=== PATIENT | male | born 1995 | race Two or more races ===

== ENCOUNTER 2024-12-21 18:58 | Inpatient (IN) | payer MEDICAID, SELFPAY ==
[2024-12-21 18:59] VITALS: BMI 29.5
[2024-12-21 19:26] VITALS: BP 156/99; PULSE 74; RESP 18; TEMP 37.1; O2SAT 100
--- NOTE | 2024-12-21 19:51 | PD.EDRME ---
Rapid Medical Screening Exam RME Arrival date/time: 12/21/24 18:58 Chief Complaint: Nausea/Vomiting/Diarrhea Vital signs: Vital Signs Temperature 98.8 F 12/21/24 19:26 Pulse Rate 74 12/21/24 19:26 Respiratory Rate 18 12/21/24 19:26 Blood Pressure 156/99 H 12/21/24 19:26 Pulse Oximetry (%) 100 12/21/24 19:26 Oxygen Delivery Method Room Air 12/21/24 19:26 Pulse ox room air is 100% Vital signs reviewed by provider: Yes RME Narrative: Patient complains of vomiting all day x 2 days. Complains of fever and chills.
[2024-12-21] MEDS: ONDANSETRON ODT 4 MG TABRAP PO (19:57)
[2024-12-21 20:07] LABS: Collection Type, Urine Clean Catch
[2024-12-21 20:09] LABS: Basophils # (Auto) 0.1 Thou/mm3 (0.0-0.2); Basophils % (Auto) 0 % (0-2.5); Eosinophils % (Auto) 0 % (0-10); Hematocrit 47.7 % (41.0-53.0); Hemoglobin 16.9 g/dL (13.5-16.0); Immature Granulocytes % (Auto) 0 % (0-0); Immature Granulocytes Auto 0.06 Thou/mm3 (0.00-0.00); Lymphocytes # (Auto) 2.2 Thou/mm3 (1.0-4.8); Lymphocytes % (Auto) 16 % (10-50); Mean Corpuscular HGB Conc 35.4 g/dl (31.0-37.0); Mean Corpuscular Hemoglobin 28.8 pg (25.0-35.0); Mean Corpuscular Volume 81 fL (80-100); Monocytes # (Auto) 1.1 Thou/mm3 (0.0-0.8); Monocytes % (Auto) 7 % (0-12); Neutrophils # (Auto) 10.8 Thou/mm3 (1.8-7.7); Neutrophils % (Auto) 76 % (37-80); Nucleated Red Blood Cell % 0 /100 WBC (0); Platelet Count 255 Thou/mm3 (140-440); RDW Standard Deviation 38.7 fL (35.1-43.9); Red Blood Count 5.87 Miln/mm3 (4.50-5.90); White Blood Count 14.3 Thou/mm3 (3.8-10.6)
[2024-12-21 20:19] LABS: Amorphous Crystals,Urine Present (Absent); Bacteria,Urine Rare; Bilirubin,Urine Negative (Negative); Blood,Urine Trace (Negative); Clarity,Urine Turbid (Clear/Hazy); Color,Urine Lt-Yellow (Lt Yel-Yel); Glucose, Urine Negative (Negative); Ketones,Urine Negative (Negative); Leukocyte Esterase,Urine Negative (Negative); Nitrite,Urine Negative (Negative); Protein,Urine Negative (Neg - Trace); RBC,Urine 1 /hpf (0-3); Specific Gravity,Urine 1.016 (1.001-1.035); Squamous Epithelial Cell,Urine 1 /hpf (0-5); Urobilinogen,Urine Negative mg/dL (0.0-1.0); WBC,Urine < 1 /hpf (0-5)
[2024-12-21 20:25] LABS: Alanine Aminotransferase 19 U/L (10-49); Albumin, Serum 5.4 gm/dL (3.5-5.0); Albumin/Globulin Ratio 2.3 (1.2-2.2); Alkaline Phosphatase 70 U/L (46-116); Anion Gap 12 (7-16); Aspartate Amino Transferase 20 U/L (0-34); BUN/Creatinine Ratio 12 Ratio (12-20); Bilirubin,Total 1.4 mg/dL (0.3-1.2); Blood Urea Nitrogen 14 mg/dL (9-23); Calcium 10.3 mg/dL (8.3-10.6); Calcium (Corrected) 10.3 mg/dL (8.5-10.1); Carbon Dioxide 32.1 mMol/L (20.0-31.0); Chloride 91 mMol/L (98-107); Creatinine (Component) 1.2 mg/dL (0.6-1.3); Estimated Creatinine Clearance 101.1 mL/min (>60); Globulin 2.3 gm/dL (2.3-3.5); Glucose 125 mg/dL (74-106); Lipase 46 U/L (12-53); Osmolality,Calculated 271 (275-295); Potassium 3.1 mMol/L (3.4-5.1); Sodium 135 mMol/L (136-145); Total Protein 7.7 gm/dL (5.7-8.2); eGFR > 60 See Note
--- NOTE | 2024-12-21 20:51 | XR_ITS ---
Examination: CT abdomen and pelvis without contrast. Coronal 3-D reconstructions. Sagittal 2-D reconstructions. Date and time of exam:December 21, 2024 2059 hours INDICATIONS: Acute abdominal pain with vomiting 3 days CTDI: vol (mGy): 7.122 DLP: (mGycm): 412 Technique: Axial images of the abdomen have been obtained, 3 mm slice thickness Intravenous contrast material has not been administered. Low dose protocols were performed. One or more of the following dose reduction techniques were used; automated exposure control, adjustment of the mA and/or KV according to patient size, use of iterative reconstruction technique. Findings: No focal liver or splenic lesions No gallstones No pancreatic or adrenal mass No renal or ureteral calculi, no hydronephrosis Normal appendix Mildly fluid distended small bowel loops in the left abdomen No bowel obstruction Scattered colonic diverticulosis, normal appendix No bladder mass Fat-containing left inguinal hernia. IMPRESSION: No renal or ureteral calculi, no hydronephrosis Normal appendix No bowel obstruction diverticulitis or free air Mild small bowel ileus
--- NOTE | 2024-12-21 20:52 | EDNOTE_ITS ---
Nausea/Vomit./Diarrhea-RME/HPI General Chief complaint: Nausea/Vomiting/Diarrhea Stated complaint: UNABLE TO EAT LAST 2 DAYS, CONSTANT VOMITING Time Seen by Provider: 12/21/24 20:51 Source: patient Arrival date/time: 12/21/24 18:58 Mode of arrival: ambulatory Limitations: no limitations RME / HPI RME / HPI Narrative: Patient complains of vomiting all day x 2 days. Complains of fever and chills. MD complaint: nausea and vomiting Onset (ago): day(s) (2 days) Related Data Previous Rx's ?Medication ?Instructions ?Recorded metoclopramide HCl 10 mg tablet 10 mg PO Q6H PRN nause a and 04/16/24 (Reglan) vomiting #30 tabs Allergies Allergy/AdvReac Type Severity Reaction Status Date / Time No Known Allergies Allergy Verified 12/21/24 19:01 Review of Systems Constitutional Constitutional: Reports system reviewed and no additional complaints, except as documented Eyes Eyes: Reports system reviewed and no additional complaints, except as documented, Denies dry eyes, Denies exophthalmos and Reports floaters Cardiovascular Cardiovascular: Denies chest pain with activity and Denies claudication ED Exam General Limitations: Present no limitations General appearance: Present alert and in no apparent distress Head Head exam: Present atraumatic Eye Eye exam: Present normal appearance and EOMI ENT ENT exam: Present normal exam, normal oropharynx and mucous membranes moist Neck Neck exam: Present normal inspection, full ROM and trachea midline Chest Chest inspection: Present normal inspection and symmetric chest wall rise Respiratory Respiratory exam: Present normal lung sounds bilaterally Cardiovascular Cardiovascular exam: Present regular rate, normal rhythm and normal heart sounds Abdominal Exam Abdominal exam: Present soft and tenderness (Tender to palpation in the area of the right upper in the left upper quadrant.) Rectal Exam Rectal exam: Present deferred Extremities Exam Extremities exam: Present normal inspection and full ROM Back Exam Back exam: Present normal inspection and full ROM Neurological Exam Neurological exam: Present alert and oriented X3 Psychiatric Psychiatric exam: Present normal affect and normal mood Skin Skin exam: Present warm, dry, intact and normal color Course Course Course Narrative: Patient will have a CBC, CMP, UA and ondansetron 4 mg p.o. times once. A CT of the abdomen and pelvis had been added. Orders Category Date Time Status CT abdomen pelvis wo con Stat Exams 12/21/24 20:51 Ordered CBC Stat Lab 12/21/24 20:01 Completed Comprehensive Metabolic Panel Stat Lab 12/21/24 20:01 Completed Lipase Stat Lab 12/21/24 20:01 Completed Urinalysis Stat Lab 12/21/24 20:00 Completed Ondansetron Odt [Zofran Odt] Med 12/21/24 19:52 Discontinued 4 mg PO X1 ONE Vital Signs Vital signs: Vital Signs Temperature 98.8 F 12/21/24 19:26 Pulse Rate 74 12/21/24 19:26 Respiratory Rate 18 12/21/24 19:26 Blood Pressure 156/99 H 12/21/24 19:26 Pulse Oximetry (%) 100 12/21/24 19:26 Oxygen Delivery Method Room Air 12/21/24 19:26 Pulse ox room air is 100% Nausea/Vomiting/Diarrhea Medications / Prescriptions Medication administrations:: Medication Administration History Discontinued Medications Ondansetron HCl (Ondansetron Odt 4 Mg Tabrap) 4 mg PO X1 ONE; Protocol Stop: 12/21/24 19:53 Last Admin: 12/21/24 19:57 Dose: 4 mg Documented By: OSITO Discharge Plan Prescriptions/Referrals Prescriptions/Med Rec: No Action metoclopramide HCl [Reglan] 10 mg tablet 10 mg PO Q6H PRN (Reason: nausea and vomiting) Qty: 30 0RF Referrals: Shahbaz Phan MD [Primary Care Provider] - In 1 week Patient/Caregiver Discharge Instructions Print Language: Slovenian
--- NOTE | 2024-12-21 23:30 | PC.NURSE ---
[employer] assumes care of patient at this time, pt is states no pain at this time, but has pain with vomiting to epigastric region. Pt is A/O x 3 with no breathing distress noted or reported
[2024-12-22] VITALS (10 sets, daily range): BP systolic 102–154; BP diastolic 66–93; PULSE 60–80; RESP 16–96; TEMP 36.1–36.9; O2SAT 93–99; BMI 26.2
--- NOTE | 2024-12-22 00:57 | EDNOTE_ITS ---
Nausea/Vomit./Diarrhea-RME/HPI General Chief complaint: Nausea/Vomiting/Diarrhea Stated complaint: UNABLE TO EAT LAST 2 DAYS, CONSTANT VOMITING Time Seen by Provider: 12/21/24 20:51 Source: patient Arrival date/time: 12/21/24 18:58 Mode of arrival: ambulatory Limitations: no limitations RME / HPI RME / HPI Narrative: Patient complains of vomiting all day x 2 days. Complains of fever and chills. ------ Dr. Nunez?s Main ED Evaluation: 29yo male with a history of alcohol abuse (quit drinking 5 days ago) presents to the ED for complaints of nausea and vomiting x 3 days. Patient states he has had 2 episodes of black tarry emesis and noticed black stools yesterday. Patient states he is passing gas. Patient denies any fever, chills, diarrhea, UTI symptoms or any other associated symptoms. Denies any previous abdominal surgeries. He is not on any daily medications. Patient does smoke marijuana. NKA. LOZA complaint: nausea and vomiting Related Data Previous Rx's ?Medication ?Instructions ?Recorded metoclopramide HCl 10 mg tablet 10 mg PO Q6H PRN nause a and 04/16/24 (Reglan) vomiting #30 tabs Allergies Allergy/AdvReac Type Severity Reaction Status Date / Time No Known Allergies Allergy Verified 12/21/24 19:01 Review of Systems Review of Systems Systems Reviewed: All systems reviewed, normal except as documented Past Medical History Past Medical History CARDIAC: Negative Congestive Heart Failure RESPIRATORY: Negative Chronic Obstructive Pulmonary Disease (COPD) GENITOURINARY: Negative Renal Disease ENDOCRINE: Negative Diabetes Mellitus Type 1 or Diabetes Mellitus Type 2 Social History SMOKING STATUS: Never smoker ED Exam Narrative Physical exam: GEN. APPEARANCE: The patient is alert awake oriented X-3, appears uncomfortable. Patient has good eye contact. Patient is cooperative. VITALS: All vitals were reviewed and the pulse ox is 100% on room air which is normal according to my interpretation. HEENT: Normocephalic, atraumatic. Pupils are equal and reactive. Oral mucosa is moist. Patent Nares NECK: Supple, nontender, no thyromegaly, no meningismus, no JVD CHEST: Symmetrical, atraumatic, and with equal expansion , Nontender on palpatio n no deformity and no crepitus. CARDIOVASCULAR: Heart regular rhythm no murmur or gallop rub or extra beats. LUNGS: Clear to auscultation bilaterally with symmetrical chest rise. No laboring tachypnea or wheezing. No intercostal subcostal retraction. No rales and no rhonchi. ABDOMEN: Soft, flat, nontender to palpation, no guarding or rebound tenderness. There are no abnormal masses palpated. Active and normal bowel sounds. EXTREMITIES: Nontender. No edema. No cyanosis. Patient is able to move all 4 extremities well, with full ROM and good CSM. SKIN: Warm and dry, no jaundice or rashes noted. NEURO: Patient is LOPEZ x 4, Cranial nerves II through XII grossly intact. There is no focal neurologic deficits noted. GCS is 15, PNS and STIPPLER appear grossly intact. PSYCHIATRIC: Patient is in normal mood and affect. General Limitations: Present no limitations General appearance: Present alert and in no apparent distress Course Quality Measures none Orders Category Date Time Status CT abdomen pelvis wo con Stat Exams 12/21/24 20:51 Completed CBC Stat Lab 12/21/24 20:01 Completed Comprehensive Metabolic Panel Stat Lab 12/21/24 20:01 Completed Lipase Stat Lab 12/21/24 20:01 Completed Urinalysis Stat Lab 12/21/24 20:00 Completed Metoclopramide Inj [Reglan Inj] Med 12/22/24 00:58 Discontinued 5 mg IVP NOW ONE Octreotide Acet Inj [SandoSTATIN Inj] Med 12/22/24 00:57 Discontinued 50 mcg IV X1 ONE Ondansetron Odt [Zofran Odt] Med 12/21/24 19:52 Discontinued 4 mg PO X1 ONE Pantoprazole Inj [Protonix Inj] Med 12/22/24 00:57 Discontinued 80 mg IVP X1 ONE Potassium Chloride [K-Dur] Med 12/22/24 00:51 Discontinued 40 meq PO X1 ONE Ringers Lactated 1000 ml [Lactated Ringers] 1,000 ml Med 12/22/24 00:50 Active IV 999 mls/hr Vital Signs Vital signs: Vital Signs Temperature 98.8 F 12/21/24 19:26 Pulse Rate 74 12/21/24 19:26 Respiratory Rate 18 12/21/24 19:26 Blood Pressure 156/99 H 12/21/24 19:26 Pulse Oximetry (%) 100 12/21/24 19:26 Oxygen Delivery Method Room Air 12/21/24 19:26 Nausea/Vomiting/Diarrhea MDM Narrative MDM Narrative:: Scribe Attestation: 12/22/24 Marinaa Gardiner am scribing for and in the presence of Dr. Nunez. Patient data External records reviewed:: [facility] previous records (Per chart review, patient was seen here on 04/16/24 for alcoholic gastritis.) Clinical information provided by:: patient Social determinants that could affect healthcare access:: substance use (smokes marijuana, quit drinking alcohol 5 days ago) Patient has the following chronic illnesses:: none How is presenting disease/condition affected by chronic disease/condition?: no chronic disease Evaluation data The following diagnostics were reviewed and interpreted by me:: lab results and radiology exam(s) Lab and/or radiology exams considered but not ordered:: none Interpretation Summary: WBC 14.3, Sodium 135, Potassium 3.1, Corrected Calcium 10.3, UA unremarkable for UTI. ------ [facility] Report Signed Patient: ARLETTE RICHEY. Record#: [id number] Birthdate: 1995 Age/Sex: 29 / M Location: [facility] Attending Dr: Ordering Physician: Quirino Gee PA-C Date of Service: 12/21/24 Procedure(s): CT abdomen pelvis wo [facility] Accession Number(s): [id number] cc: Shahbaz Phan MD; Schuyler George MD; Quirino Gee PA-C~ Examination: CT abdomen and pelvis without contrast. Coronal 3-D reconstructions. Sagittal 2-D reconstructions. Date and time of exam:December 21, 2024 2059 hours INDICATIONS: Acute abdominal pain with vomiting 3 days CTDI: vol (mGy): 7.122 DLP: (mGycm): 412 Technique: Axial images of the abdomen have been obtained, 3 mm slice thickness Intravenous contrast material has not been administered. Low dose protocols were performed. One or more of the following dose reduction techniques were used; automated exposure control, adjustment of the mA and/or KV according to patient size, use of iterative reconstruction technique. Findings: No focal liver or splenic lesions No gallstones No pancreatic or adrenal mass No renal or ureteral calculi, no hydronephrosis Normal appendix Mildly fluid distended small bowel loops in the left abdomen No bowel obstruction Scattered colonic diverticulosis, normal appendix No bladder mass Fat-containing left inguinal hernia. IMPRESSION: No renal or ureteral calculi, no hydronephrosis Normal appendix No bowel obstruction diverticulitis or free air Mild small bowel ileus Dictated By: Schuyler George MD Signed By: <Electronically signed by Schuyler George MD in OV> 12/21/24 2287 Medications / Prescriptions Medications / Prescriptions considered but not ordered:: none Medication administrations:: Medication Administration History Lactated Ringer's (Lactated Ringers) 1,000 mls @ 999 mls/hr IV .Q1H1M ONE Stop: 12/22/24 01:50 Discontinued Medications Metoclopramide HCl (Metoclopramide Inj 5 Mg/Ml Vial 2 Ml) 5 mg IVP NOW ONE; Protocol Stop: 12/22/24 00:59 Octreotide Acetate (Octreotide Acet Inj 50 Mcg/Ml Vial) 50 mcg IV X1 ONE Stop: 12/22/24 00:58 Ondansetron HCl (Ondansetron Odt 4 Mg Tabrap) 4 mg PO X1 ONE; Protocol Stop: 12/21/24 19:53 Last Admin: 12/21/24 19:57 Dose: 4 mg Documented By: Pantoprazole Sodium (Pantoprazole Inj 40 Mg Vial) 80 mg IVP X1 ONE Stop: 12/22/24 00:58 Potassium Chloride (Potassium Chloride 20 Meq Tabcr) 40 meq PO X1 ONE Stop: 12/22/24 00:52 see above Consultations Consultation(s) initiated? (list below): Yes Consultation #1 (Physician, Specialty, Details): Discussed case with Dr. Carlin the resident physician, attending Dr. Sandoval from Hospitalist service regarding admission. Discussed patients ED course, exam findings, labs, and radiology results. The Hospitalist agrees to accept the patient for admission. Time: 01:00 Diagnosis Nausea Differential Diagnosis: other (perforated viscus, gastritis, esophageal ulcer, esophageal varices) Most likely diagnosis given after review of the tests above:: upper GI bleed Admission Indicated Admission indicated?: indicated Admission Request Was there a request for admission?: Yes Admission Attestation Admission request attestation: Discussed case with [] from Hospitalist service regarding admission. Discussed patients ED course, exam findings, labs, and radiology results. The Hospitalist [agrees,declines] to accept the patient for admission. Disposition Plan Disposition Plan: Admit Discharge Plan Plan Patient Disposition: Admit Acute Care w/in Hospital Prescriptions/Referrals Prescriptions/Med Rec: No Action metoclopramide HCl [Reglan] 10 mg tablet 10 mg PO Q6H PRN (Reason: nausea and vomiting) Qty: 30 0RF Referrals: Shahbaz Phan MD [Primary Care Provider] - In 1 week Problem List Clinical Impression: Upper gastrointestinal bleed Patient/Caregiver Discharge Instructions Print Language: Uzbek Stand Alone Forms: Mireille Award Info., Patient Portal Info Letter
--- NOTE | 2024-12-22 01:37 | PD.RESHP ---
Documentation for date of: 12/22/24 HPI History of Present Illness Chief complaint: Hematemesis History of present illness: 29-year-old male with past medical history of alcohol use disorder who presented to the ED with hematemesis and dark tarry stools. Patient is a daily drinker however states he has attempted to quit last drink was 5 days ago. Patient states that onset of symptoms was around 3-5 days ago where he first noticed dark stools which later became bloody. He also states he has been having bloody vomiting for 3 days ago last episode of bloody vomiting was yesterday night. This morning he also attempted to vomit however only saliva came out. He endorses some abdominal pain rated around 5 out of 10 more pronounced in the epigastric region however does endorse some right upper quadrant pain. He also endorses having dizziness at this present moment in time. Patient denies any fever, chills, shortness of breath, chest pain, recent travel, sick contacts. Patient will be admitted for GI bleed workup. ED course: ED vitals: BP 156/99, HR 74, saturating 100% on room air ED labs: Leukocytosis, hemoglobin of 16.9, sodium 135, potassium 3.1, chloride 91, 32.1 bicarbonate, glucose 125, T. bili 1.4, UA negative for UTI. CT abdomen pelvis shows mild SBO. Gallbladder ultrasound shows negative cholecystitis or cholelithiasis. In the ED patient received Protonix and octreotide loading doses, IV fluids, Zofran PMHx: As above SX Hx: None Social Hx: Daily alcohol user mostly drinks beers last drink was 5 days ago, denies illicit substances however does use marijuana, denies smoking. FH X: Unknown Review of Systems Review of Systems Systems Reviewed: All systems reviewed, normal except as documented Narrative Review of Systems: All 12 systems reviewed and found negative unless otherwise stated in the HPI. Exam Vital Signs Temp Pulse Resp BP Pulse Ox O2 Del Method 98.4 F 63 18 143/93 H 99 Room Air 12/22/24 00:57 12/22/24 00:57 12/22/24 00:57 12/22/24 00:57 12/22/24 00:57 12/22/24 00:57 Narrative Exam Physical Exam GENERAL: NAD, AAOx3 HEENT: Dry mucosa. Eyes open, symmetrical, & clear CARDIO: Heart RRR, no obvious murmurs PULM: No noted coughing/dyspnea CTA B/L, no R/W/R GI: Abdomen soft, nondistended, pain on palpation in epigastric region and right upper quadrant, negative Marion sign. BSx4 SKIN/MSK/EXT: No wounds/rashes/edema/amputations, no pain on palpation. Pedal pulses present B/L NEURO: AAOx3, no focal neuro deficits, able to move all 4 extremities Results: Labs 12/21/24 20:01 12/21/24 20:01 Labs: Short CBC 12/21/24 Range/Units 20:01 WBC 14.3 H (3.8-10.6) Thou/mm3 Hgb 16.9 H (13.5-16.0) g/dL Hct 47.7 (41.0-53.0) % Plt Count 255 (140-440) Thou/mm3 BMP 12/21/24 20:01 Sodium 135 L Potassium 3.1 L Chloride 91 L Carbon Dioxide 32.1 H BUN 14 Creatinine 1.2 Glucose 125 H Calcium 10.3 Liver Function 12/21/24 Range/Units 20:01 Total Bilirubin 1.4 H (0.3-1.2) mg/dL AST 20 (0-34) U/L ALT 19 (10-49) U/L Alkaline Phosphatase 70 (46-116) U/L Albumin 5.4 H (3.5-5.0) gm/dL Urine 12/21/24 Range/Units 20:00 Urine Color Lt-Yellow (Lt Yel-Yel) Urine Clarity Turbid A (Clear/Hazy) Urine pH 8.0 H (5.0-7.0) Ur Specific [place] 1.016 (1.001-1.035) Urine Protein Negative (Neg - Trace) Urine Glucose (UA) Negative (Negative) Quality Measures Quality Measures none Medications Home Medications and Allergies Allergies Allergy/AdvReac Type Severity Reaction Status Date / Time No Known Allergies Allergy Verified 12/21/24 19:01 Visit Medications Lactated Ringer's (Lactated Ringers) 1,000 mls @ 999 mls/hr IV .Q1H1M ONE Stop: 12/22/24 01:50 Discontinued Medications Metoclopramide HCl (Metoclopramide Inj 5 Mg/Ml Vial 2 Ml) 5 mg IVP NOW ONE; Protocol Stop: 12/22/24 00:59 Octreotide Acetate (Octreotide Acet Inj 50 Mcg/Ml Vial) 50 mcg IV X1 ONE Stop: 12/22/24 00:58 Ondansetron HCl (Ondansetron Odt 4 Mg Tabrap) 4 mg PO X1 ONE; Protocol Stop: 12/21/24 19:53 Last Admin: 12/21/24 19:57 Dose: 4 mg Pantoprazole Sodium (Pantoprazole Inj 40 Mg Vial) 80 mg IVP X1 ONE Stop: 12/22/24 00:58 Potassium Chloride (Potassium Chloride 20 Meq Tabcr) 40 meq PO X1 ONE Stop: 12/22/24 00:52 Assessment & Plan Plan 29-year-old male with past medical history of alcohol use disorder who presented to the ED with hematemesis and dark tarry stools. #GI bleed upper versus lower Onset of symptoms was around 3-5 days ago where he first noticed dark stools which later became bloody. He also states he has been having bloody vomiting for 3 days ago last episode of bloody vomiting was yesterday night. Hemoglobin at this time 16.9, no episodes of hematemesis or melena in the ED Rockall score: 0; 0.2% mortality pre-endoscopy Angelita-Blatchford Bleeding Score (GBS): 1; likely to require medical intervention ? Octreotide drip (12/22/2024?) ? Pantoprazole 40 mg IV twice daily ? IV fluids at 100 cc/h ? N.p.o. ? GI consulted, appreciate recs #Alcohol use disorder ? Thiamine ? Folic acid ? [facility] protocol #Elevated T. bili Likely due to dehydration in the setting of vomiting and alcohol use Gallbladder ultrasound was done showed no cholelithiasis or cholecystitis ? Monitor at this time Health Maintenance: Disposition: Telemetry, pending GI workup, [facility] protocol Fluids: NS Feeding: N.p.o. Thrombo prophylaxis: SCDs Gastric Ulcer prophylaxis: Pantoprazole CODE STATUS: Full code Case discussed with my attending Dr. Jaime Phan MD PGY-1 Disclaimer: Despite multiple revisions, due to the dictation software being used, the document bellow may not be free of grammatical errors including phonetic/typographic errors. However, this does not deter from our commitment to providing health care in the patient's best interest in mind. Attending Provider Attestation/Addendum I reviewed labs, imaging, EKG, home medications and prior available records. Face to face evaluation was performed by me. I have personally examined the patient and discussed assessment and plan with the IM team. I reviewed the resident note and agree with the plan with exceptions as below. Hematemesis Upper GI bleed Alcohol abuse Leukocytosis Hypokalemia Start IV octreotide Start IV Protonix Monitor H&H IV fluids Trend WBC Replete potassium as needed and monitor BMP Consult GI for EGD N.p.o. prior to EGD
[2024-12-22] MEDS: POTASSIUM CHLORIDE 20 mEq TABCR 40 MEQ PO (03:08)
[2024-12-22] MEDS: FOLIC ACID 1 MG TABLET PO ×3 (03:09→21:11)
[2024-12-22] MEDS: THIAMINE 100 MG TABLET PO ×3 (03:09→21:11)
[2024-12-22] MEDS: METOCLOPRAMIDE INJ 5 MG/ML VIAL 2 ML IVP (03:10)
[2024-12-22] MEDS: OCTREOTIDE ACET INJ 50 mCg/ML VIAL IV (03:11)
[2024-12-22] MEDS: PANTOPRAZOLE INJ 40 MG VIAL 80 MG IVP (03:12)
[2024-12-22] MEDS: RINGERS LACTATED 1000 ML 1,000 ML 999 ML IV (03:13)
--- NOTE | 2024-12-22 03:38 | PC.NURSE ---
Report called to floor nurse, CHINMAY Childress
[2024-12-22] MEDS: RINGERS LACTATED 1000 ML 1,000 ML 100 ML IV (04:30)
[2024-12-22] MEDS: OCTREOTIDE ACET INJ 1,000 MCG in SODIUM CHLORIDE 0.9% 100 ML 5.1 MCG IV ×2 (04:39→22:18)
[2024-12-22 05:31] LABS: Basophils % (Auto) 0 % (0-2.5); Eosinophils % (Auto) 0 % (0-10); Hematocrit 44.8 % (41.0-53.0); Hemoglobin 15.9 g/dL (13.5-16.0); Immature Granulocytes % (Auto) 0 % (0-0); Immature Granulocytes Auto 0.06 Thou/mm3 (0.00-0.00); Lymphocytes # (Auto) 2.1 Thou/mm3 (1.0-4.8); Lymphocytes % (Auto) 16 % (10-50); Mean Corpuscular HGB Conc 35.5 g/dl (31.0-37.0); Mean Corpuscular Volume 82 fL (80-100); Monocytes % (Auto) 8 % (0-12); Neutrophils # (Auto) 10.2 Thou/mm3 (1.8-7.7); Neutrophils % (Auto) 76 % (37-80); Nucleated Red Blood Cell % 0 /100 WBC (0); Platelet Count 256 Thou/mm3 (140-440); RDW Standard Deviation 38.8 fL (35.1-43.9); Red Blood Count 5.48 Miln/mm3 (4.50-5.90); White Blood Count 13.4 Thou/mm3 (3.8-10.6)
[2024-12-22 06:12] LABS: Alanine Aminotransferase 17 U/L (10-49); Albumin, Serum 4.7 gm/dL (3.5-5.0); Albumin/Globulin Ratio 2.1 (1.2-2.2); Alkaline Phosphatase 65 U/L (46-116); Anion Gap 16 (7-16); Aspartate Amino Transferase 23 U/L (0-34); BUN/Creatinine Ratio 12 Ratio (12-20); Bilirubin,Total 1.8 mg/dL (0.3-1.2); Blood Urea Nitrogen 12 mg/dL (9-23); Calcium 8.9 mg/dL (8.3-10.6); Calcium (Corrected) 8.9 mg/dL (8.5-10.1); Carbon Dioxide 28.4 mMol/L (20.0-31.0); Chloride 94 mMol/L (98-107); Globulin 2.2 gm/dL (2.3-3.5); Glucose 143 mg/dL (74-106); Magnesium 2.2 mg/dL (1.6-2.6); Osmolality,Calculated 277 (275-295); Potassium 3.8 mMol/L (3.4-5.1); Sodium 138 mMol/L (136-145); Total Protein 6.9 gm/dL (5.7-8.2); eGFR > 60 See Note
[2024-12-22] MEDS: ONDANSETRON INJ 2 MG/ML INJ 2 ML 4 MG IVP (08:00)
[2024-12-22] MEDS: LORazepam 0.5 MG TABLET PO (08:00)
[2024-12-22] MEDS: PANTOPRAZOLE INJ 40 MG VIAL IVP ×2 (08:01→21:11)
--- NOTE | 2024-12-22 10:03 | PC.SS ---
Dex Leal is a 29-year-old male admitted to [facility] for Hematemesis. SS conducted bedside contact with the patient to complete initial assessment and to discuss discharge planning. Role and reason explained. Patient confirmed demographic information. Patient identifies his Velvet Leal [phone] as his surrogate decision maker. Pt states he is able to complete all ADL?s independent. Pt does not possesses any DME. Pts PCP is Sylvester. Pharmacy of choice is [facility]. Discharge options discussed and the pt wishes to return home. Pt family will provide transport at the time of DC. No further intervention required at this time, social welfare research worker would be available to address any further concerns. DC Plan: Home Contact: Loretta PCP: Sylvester HUTCHINSON
--- NOTE | 2024-12-22 11:37 | ESPR_ITS ---
<Statement entered by Aubrey Carrero MD - 12/23/24 00:31> 29-year-old male patient with significant medical history for alcohol use disorder, was admitted overnight for hematemesis and dark tarry stools. Morning labs stable with hemoglobin of 15. Patient on CIWA protocol, GI Dr. Lay consulted for possible EGD and/or colonoscopy. We will continue octreotide and pantoprazole. I discussed with and supervised the marketing research intern physician involved in the care of this patient. Patient assessment and plan was discussed with entire medicine team, including my attending. I agree with the assessment and plan as documented by marketing research intern doctor. Patient care was discussed with my attending physician Dr. Nimo Carrero, PGY-2 Documentation for date of: 12/22/24 Subjective Subjective Interval history: Patient is seen and examined at bedside No acute overnight events. Denies any other complaints except for mild nausea Vital signs stable. On physical examination, noted tremors on extension of arms Labs showed mildly elevated WBC, mildly elevated total bilirubin, 1.8 Pending Gi recs, might need UGI Endoscopy Exam Vital Signs Temp Pulse Resp BP Pulse Ox O2 Del Method 97.2 F 80 19 118/90 H 98 Room Air 12/22/24 08:00 12/22/24 08:00 12/22/24 08:00 12/22/24 08:00 12/22/24 08:00 12/22/24 08:00 Narrative Exam General: Awake. HEENT: Normocephalic, atraumatic, mucous membranes moist. Heart: Regular rate and rhythm, no murmurs. Lungs: Clear to auscultation with no wheezing or crackles. Abdomen: Soft, nondistended, nontender, positive bowel sounds. ?No guarding or rebound tenderness. Neurologic: Alert and oriented x3, no gross neurological deficit, and patient able to move all 4 extremities. Tremors on extending upper extremities Extremities: No edema. Skin: No rash or ecchymoses. Objective Labs 12/22/24 04:55 12/22/24 04:55 Labs: Laboratory Results - last 24 hr 12/21/24 12/21/24 12/22/24 20:00 20:01 04:55 WBC 14.3 H 13.4 H RBC 5.87 5.48 Hgb 16.9 H 15.9 Hct 47.7 44.8 MCV 81 82 MCH 28.8 29.0 MCHC 35.4 35.5 RDW Std Deviation 38.7 38.8 Plt Count 255 256 Neut % (Auto) 76 76 Lymph % (Auto) 16 16 [place] % (Auto) 7 8 Eos % (Auto) 0 0 Baso % (Auto) 0 0 Neut # (Auto) 10.8 H 10.2 H Lymph # (Auto) 2.2 2.1 [place] # (Auto) 1.1 H 1.0 H Eos # (Auto) 0.0 0.0 Baso # (Auto) 0.1 0.0 Immature Gran # (Auto) 0.06 H 0.06 H Absolute Nucleated RBC 0.00 0.00 Immature Gran % 0 0 Nucleated RBC % 0 0 Sodium 135 L 138 Potassium 3.1 L 3.8 D Chloride 91 L 94 L Carbon Dioxide 32.1 H 28.4 Anion Gap 12 16 BUN 14 12 Creatinine 1.2 1.0 Estim Creat Clear Calc 101.1 109.0 eGFR > 60 > 60 BUN/Creatinine Ratio 12 12 Glucose 125 H 143 H Calculated Osmolality 271 L 277 Calcium 10.3 8.9 Corrected Calcium 10.3 H 8.9 Magnesium 2.2 Total Bilirubin 1.4 H 1.8 H AST 20 23 ALT 19 17 Alkaline Phosphatase 70 65 Total Protein 7.7 6.9 Albumin 5.4 H 4.7 D Globulin 2.3 2.2 L Albumin/Globulin Ratio 2.3 H 2.1 Lipase 46 Ur Collection Type Clean Catch Urine Color Lt-Yellow Urine Clarity Turbid A Urine pH 8.0 H Ur Specific [place] 1.016 Urine Protein Negative Urine Glucose (UA) Negative Urine Ketones Negative Urine Blood Trace Urine Nitrite Negative Urine Bilirubin Negative Urine Urobilinogen (Auto) Negative Ur Leukocyte Esterase Negative Urine RBC 1 Urine WBC < 1 Ur Squamous Epith Cells 1 Amorphous Crystals Present A Urine Bacteria Rare Quality Measures Quality Measures none Assessment & Plan Assessment Current Active Medications: Generic Name Dose Route Start Last Admin Trade Name Freq PRN Reason Stop Dose Admin Acetaminophen 650 mg 12/22/24 01:34 Acetaminophen 325 Mg Tablet PO 01/21/25 01:33 Q6H PRN Fever >99.5 Acetaminophen 1,000 mg 12/22/24 01:34 Acetaminophen 325 Mg Tablet PO 01/21/25 01:33 Q6H PRN PAIN SCALE 1-3 (mild Chlordiazepoxide HCl 25 mg 12/22/24 14:00 Chlordiazepoxide Hcl 25 Mg Capsule PO 12/27/24 13:59 Q8HR IFTIKHAR Folic Acid 1 mg 12/22/24 01:45 12/22/24 08:00 Folic Acid 1 Mg Tablet PO 12/27/24 01:44 1 mg BID IFTIKHAR Administration Lactated Ringer's 1,000 mls @ 100 mls/hr 12/22/24 01:45 12/22/24 04:30 Lactated Ringers IV 12/22/24 11:44 100 mls/hr .Q10H IFTIKHAR Administration Octreotide Acetate 1,000 mcg/ 102 mls @ 5.1 mls/hr 12/22/24 21:44 Sodium Chloride IV 12/27/24 21:43 .Q20H IFTIKHAR Protocol 50 MCG/HR Octreotide Acetate 1,000 mcg/ 102 mls @ 5.1 mls/hr 12/22/24 01:45 12/22/24 04:39 Sodium Chloride IV 12/22/24 21:44 50 mcg/hr .Q20H ONE 5.1 mls/hr Administration Protocol 50 MCG/HR Lorazepam 0.5 mg 12/22/24 01:34 12/22/24 08:00 Lorazepam 0.5 Mg Tablet PO 12/27/24 01:33 0.5 mg Q4HR PRN Administration CIWA Score 2-6 Lorazepam 0.5 mg 12/22/24 01:34 Lorazepam 2 Mg/Ml Vial IV 12/27/24 01:33 Q2HR PRN CIWA SCORE 7-13 Lorazepam 1 mg 12/22/24 01:34 Lorazepam 2 Mg/Ml Vial IV 12/27/24 01:33 Q2HR PRN CIWA SCORE 14-19 Lorazepam 2 mg 12/22/24 01:34 Lorazepam 2 Mg/Ml Vial IV 12/27/24 01:33 Q2HR PRN CIWA SCORE 20-25 Ondansetron HCl 4 mg 12/22/24 01:34 12/22/24 08:00 Ondansetron Inj 2 Mg/Ml Inj 2 Ml IVP 01/21/25 01:33 4 mg Q6H PRN Administration NAUSEA OR VOMITING Protocol Pantoprazole Sodium 40 mg 12/22/24 09:00 12/22/24 08:01 Pantoprazole Inj 40 Mg Vial IVP 01/21/25 08:59 40 mg Q12HR IFTIKHAR Administration Thiamine HCl 100 mg 12/22/24 01:45 12/22/24 08:00 Thiamine 100 Mg Tablet PO 12/27/24 01:44 100 mg BID IFTIKHAR Administration Plan 29-year-old male with past medical history of alcohol use disorder who presented to the ED with hematemesis and dark tarry stools. #GI bleed upper, likely versus lower Onset of symptoms was around 3-5 days ago where he first noticed dark stools which later became bloody. He also states he has been having bloody vomiting for 3 days ago last episode of bloody vomiting was yesterday night. Hemoglobin at this time 16.9, no episodes of hematemesis or melena in the ED Rockall score: 0; 0.2% mortality pre-endoscopy Angelita-Blatchford Bleeding Score (GBS): 1; likely to require medical intervention ? Octreotide drip (12/22/2024?) ? Pantoprazole 40 mg IV twice daily ? IV fluids at 125 cc/h ? N.p.o. ? GI consulted, appreciate recs #Alcohol use disorder ? Thiamine ? Folic acid ? CIWA protocol - Librium 25mg thrice daily, will downtitrate based on clinical symptoms #Elevated T. bili Likely due to dehydration in the setting of vomiting and alcohol use Gallbladder ultrasound was done showed no cholelithiasis or cholecystitis ? Monitor at this time Health Maintenance: Disposition: Telemetry, pending GI workup, CIWA protocol Fluids: NS Feeding: N.p.o. Thrombo prophylaxis: SCDs Gastric Ulcer prophylaxis: Pantoprazole CODE STATUS: Full code Patient plan of care was discussed with the attending physician, Dr. Suero and senior resident Dr. Magan Banks, PGY1 Attending Provider Attestation/Addendum I have discussed and was present for the essential components of the history, physical examination, diagnosis, and treatment plan with the resident. I agree with the patient's care as documented by the resident and amended herein by me. Elvis Suero DO. Although this document has been carefully reviewed, there may still be some phonetic and other typographical errors. These errors are purely grammatical due to imperfections in the software program and should not be construed in any way to compromise the substance of the patient's medical care during this visit.
[2024-12-22] MEDS: chlordiazePOXIDE HCl 25 MG CAPSULE PO ×2 (13:04→21:11)
[2024-12-22] MEDS: RINGERS LACTATED 1000 ML 1,000 ML 125 ML IV (14:13)
--- NOTE | 2024-12-22 18:53 | ESCONSULT_ITS ---
HPI Data of Consult Requesting Physician: Marco A Suero DO Primary Care Provider: Shahbaz Phan MD Consult Narrative Reason for consult: Hematemesis, melena, nausea vomiting History of present illness: 29 years old male comes in for evaluation to the emergency room with hematemesis melanotic stool along with nausea vomiting His urine toxicology is positive for THC as well as cocaine He also drinks heavily but has not drank for [address] scan of the abdomen pelvis showed without contrast no acute abnormalities Gallbladder ultrasound last year was negative for cholelithiasis cc:: cc: Marco A Suero DO Review of Systems Review of Systems Systems Reviewed: All systems reviewed, normal except as documented Past Medical History Surgical History OTHER SURGICAL HX: As in the history of present illness Meds Home Medications and Allergies Allergies Allergy/AdvReac Type Severity Reaction Status Date / Time No Known Allergies Allergy Verified 12/21/24 19:01 Exam Vital Signs Temp Pulse Resp BP Pulse Ox O2 Del Method 97.5 F 70 18 127/72 95 Room Air 12/22/24 16:00 12/22/24 18:44 12/22/24 18:44 12/22/24 16:00 12/22/24 16:00 12/22/24 16:00 Constitutional Comments: Alert oriented Routine Respiratory Exam Comments: Normal to auscultation Routine Abdominal Exam Comments: Soft nontender Results Labs 12/22/24 04:55 12/22/24 04:55 Labs: Short CBC 12/21/24 12/22/24 Range/Units 20:01 04:55 WBC 14.3 H 13.4 H (3.8-10.6) Thou/mm3 Hgb 16.9 H 15.9 (13.5-16.0) g/dL Hct 47.7 44.8 (41.0-53.0) % Plt Count 255 256 (140-440) Thou/mm3 BMP 12/21/24 12/22/24 20:01 04:55 Sodium 135 L 138 Potassium 3.1 L 3.8 D Chloride 91 L 94 L Carbon Dioxide 32.1 H 28.4 BUN 14 12 Creatinine 1.2 1.0 Glucose 125 H 143 H Calcium 10.3 8.9 Liver Function 12/21/24 12/22/24 Range/Units 20:01 04:55 Total Bilirubin 1.4 H 1.8 H (0.3-1.2) mg/dL AST 20 23 (0-34) U/L ALT 19 17 (10-49) U/L Alkaline Phosphatase 70 65 (46-116) U/L Albumin 5.4 H 4.7 D (3.5-5.0) gm/dL Urine 12/21/24 Range/Units 20:00 Urine Color Lt-Yellow (Lt Yel-Yel) Urine Clarity Turbid A (Clear/Hazy) Urine pH 8.0 H (5.0-7.0) Ur Specific [place] 1.016 (1.001-1.035) Urine Protein Negative (Neg - Trace) Urine Glucose (UA) Negative (Negative) Assessment and Plan Additional Assessment & Plan Additional Plan: # Hematemesis # Melena Recommendations Clear liquid diet followed by diet Consent obtained for fiberoptic esophagogastroduodenoscopy with possible biopsy possible therapeutic intervention under intravenous moderate sedation Advised complete abstinence from alcohol drugs and THC IV Protonix Serial CBC Will follow the patient Thank you very much for the opportunity to participate in the care of this patient
--- NOTE | 2024-12-22 22:24 | PC.NURSE ---
Contacted DR Carlin for LR auto DC pt will be NPO at midnight. No new orders given
[2024-12-23] VITALS (17 sets, daily range): BP systolic 112–144; BP diastolic 65–96; PULSE 53–74; RESP 10–97; TEMP 36.1–36.9; O2SAT 94–100; BMI 25.8
[2024-12-23] MEDS: RINGERS LACTATED 1000 ML 1,000 ML 125 ML IV (00:09)
[2024-12-23 05:42] LABS: Basophils # (Auto) 0.1 Thou/mm3 (0.0-0.2); Basophils % (Auto) 1 % (0-2.5); Eosinophils # (Auto) 0.1 Thou/mm3 (0.0-0.5); Eosinophils % (Auto) 1 % (0-10); Hematocrit 47.9 % (41.0-53.0); Hemoglobin 16.4 g/dL (13.5-16.0); Immature Granulocytes % (Auto) 0 % (0-0); Immature Granulocytes Auto 0.03 Thou/mm3 (0.00-0.00); Lymphocytes # (Auto) 2.5 Thou/mm3 (1.0-4.8); Lymphocytes % (Auto) 27 % (10-50); Mean Corpuscular HGB Conc 34.2 g/dl (31.0-37.0); Mean Corpuscular Hemoglobin 29.2 pg (25.0-35.0); Mean Corpuscular Volume 85 fL (80-100); Monocytes # (Auto) 0.9 Thou/mm3 (0.0-0.8); Monocytes % (Auto) 10 % (0-12); Neutrophils # (Auto) 5.8 Thou/mm3 (1.8-7.7); Neutrophils % (Auto) 62 % (37-80); Nucleated Red Blood Cell % 0 /100 WBC (0); Platelet Count 232 Thou/mm3 (140-440); RDW Standard Deviation 40.2 fL (35.1-43.9); Red Blood Count 5.62 Miln/mm3 (4.50-5.90); White Blood Count 9.4 Thou/mm3 (3.8-10.6)
[2024-12-23 06:01] LABS: Alanine Aminotransferase 15 U/L (10-49); Albumin, Serum 4.6 gm/dL (3.5-5.0); Albumin/Globulin Ratio 2.2 (1.2-2.2); Alkaline Phosphatase 65 U/L (46-116); Anion Gap 10 (7-16); Aspartate Amino Transferase 13 U/L (0-34); BUN/Creatinine Ratio 8 Ratio (12-20); Bilirubin,Total 1.5 mg/dL (0.3-1.2); Blood Urea Nitrogen 7 mg/dL (9-23); Calcium 8.8 mg/dL (8.3-10.6); Calcium (Corrected) 8.8 mg/dL (8.5-10.1); Carbon Dioxide 30.3 mMol/L (20.0-31.0); Chloride 98 mMol/L (98-107); Creatinine (Component) 0.9 mg/dL (0.6-1.3); Estimated Creatinine Clearance 121.1 mL/min (>60); Globulin 2.1 gm/dL (2.3-3.5); Glucose 123 mg/dL (74-106); Magnesium 2.1 mg/dL (1.6-2.6); Osmolality,Calculated 274 (275-295); Phosphorous 3.4 mg/dL (2.4-5.1); Potassium 3.6 mMol/L (3.4-5.1); Sodium 138 mMol/L (136-145); Total Protein 6.7 gm/dL (5.7-8.2); eGFR > 60 See Note
[2024-12-23] MEDS: chlordiazePOXIDE HCl 25 MG CAPSULE PO (06:04)
[2024-12-23] MEDS: FOLIC ACID 1 MG TABLET PO ×2 (09:14→21:25)
[2024-12-23] MEDS: THIAMINE 100 MG TABLET PO ×2 (09:14→21:25)
[2024-12-23] MEDS: PANTOPRAZOLE INJ 40 MG VIAL IVP ×2 (09:14→21:25)
[2024-12-23] MEDS: RINGERS LACTATED 1000 ML 1,000 ML 75 ML IV (12:18)
[2024-12-23] MEDS: chlordiazePOXIDE HCl 10 MG CAPSULE PO ×2 (13:23→21:25)
--- NOTE | 2024-12-23 15:55 | ESPR_ITS ---
<Statement entered by Aubrey Carrero MD - 12/24/24 07:44> I discussed with and supervised the development intern physician involved in the care of this patient. Patient assessment and plan was discussed with entire medicine team, including my attending. I agree with the assessment and plan as documented by development intern doctor. Patient care was discussed with my attending physician Dr. Nimo Carrero, PGY-2 Documentation for date of: 12/23/24 Subjective Subjective Interval history: Patient is seen and examined at bedside No acute overnight events Vitals are stable and labs showed hemoglobin of 16.4, total bilirubin is trending down, 1.5 Pending upper GI endoscopy by Dr. Lay later in the day. Till then we will continue IV fluids Patient was given a work note today as he had to attend court Exam Vital Signs Temp Pulse Resp BP Pulse Ox O2 Del Method 97.6 F 58 L 13 127/80 97 Room Air 12/23/24 12:00 12/23/24 12:00 12/23/24 12:00 12/23/24 12:00 12/23/24 12:00 12/23/24 12:00 Narrative Exam General: Awake. HEENT: Normocephalic, atraumatic, mucous membranes moist. Heart: Regular rate and rhythm, no murmurs. Lungs: Clear to auscultation with no wheezing or crackles. Abdomen: Soft, nondistended, nontender, positive bowel sounds. ?No guarding or rebound tenderness. Neurologic: Alert and oriented x3, no gross neurological deficit, and patient able to move all 4 extremities. Tremors on extending upper extremities Extremities: No edema. Skin: No rash or ecchymoses. Objective Labs 12/24/24 04:35 12/24/24 04:35 Labs: Laboratory Results - last 24 hr 12/23/24 04:21 WBC 9.4 RBC 5.62 Hgb 16.4 H Hct 47.9 MCV 85 MCH 29.2 MCHC 34.2 RDW Std Deviation 40.2 Plt Count 232 Neut % (Auto) 62 Lymph % (Auto) 27 [place] % (Auto) 10 Eos % (Auto) 1 Baso % (Auto) 1 Neut # (Auto) 5.8 Lymph # (Auto) 2.5 [place] # (Auto) 0.9 H Eos # (Auto) 0.1 Baso # (Auto) 0.1 Immature Gran # (Auto) 0.03 H Absolute Nucleated RBC 0.00 Immature Gran % 0 Nucleated RBC % 0 Sodium 138 Potassium 3.6 Chloride 98 Carbon Dioxide 30.3 Anion Gap 10 BUN 7 L Creatinine 0.9 Estim Creat Clear Calc 121.1 eGFR > 60 BUN/Creatinine Ratio 8 L Glucose 123 H Calculated Osmolality 274 L Calcium 8.8 Corrected Calcium 8.8 Phosphorus 3.4 Magnesium 2.1 Total Bilirubin 1.5 H AST 13 ALT 15 Alkaline Phosphatase 65 Total Protein 6.7 Albumin 4.6 Globulin 2.1 L Albumin/Globulin Ratio 2.2 Quality Measures Quality Measures none Assessment & Plan Assessment Current Active Medications: Generic Name Dose Route Start Last Admin Trade Name Freq PRN Reason Stop Dose Admin Acetaminophen 650 mg 12/22/24 01:34 Acetaminophen 325 Mg Tablet PO 01/21/25 01:33 Q6H PRN Fever >99.5 Acetaminophen 1,000 mg 12/22/24 01:34 Acetaminophen 325 Mg Tablet PO 01/21/25 01:33 Q6H PRN PAIN SCALE 1-3 (mild Chlordiazepoxide HCl 10 mg 12/23/24 14:00 12/23/24 13:23 Chlordiazepoxide Hcl 10 Mg Capsule PO 12/28/24 13:59 10 mg Q8HR IFTIKHAR Administration Folic Acid 1 mg 12/22/24 01:45 12/23/24 09:14 Folic Acid 1 Mg Tablet PO 12/27/24 01:44 1 mg BID IFTIKHAR Administration Octreotide Acetate 1,000 mcg/ 102 mls @ 5.1 mls/hr 12/22/24 21:44 12/22/24 22:18 Sodium Chloride IV 12/27/24 21:43 50 mcg/hr .Q20H IFTIKHAR 5.1 mls/hr Administration Protocol 50 MCG/HR Lactated Ringer's 1,000 mls @ 75 mls/hr 12/23/24 11:16 12/23/24 12:18 Lactated Ringers IV 12/24/24 00:35 75 mls/hr .[id number] ONE Administration Lorazepam 0.5 mg 12/22/24 01:34 12/22/24 08:00 Lorazepam 0.5 Mg Tablet PO 12/27/24 01:33 0.5 mg Q4HR PRN Administration CIWA Score 2-6 Lorazepam 0.5 mg 12/22/24 01:34 Lorazepam 2 Mg/Ml Vial IV 12/27/24 01:33 Q2HR PRN CIWA SCORE 7-13 Lorazepam 1 mg 12/22/24 01:34 Lorazepam 2 Mg/Ml Vial IV 12/27/24 01:33 Q2HR PRN CIWA SCORE 14-19 Lorazepam 2 mg 12/22/24 01:34 Lorazepam 2 Mg/Ml Vial IV 12/27/24 01:33 Q2HR PRN CIWA SCORE 20-25 Ondansetron HCl 4 mg 12/22/24 01:34 12/22/24 08:00 Ondansetron Inj 2 Mg/Ml Inj 2 Ml IVP 01/21/25 01:33 4 mg Q6H PRN Administration NAUSEA OR VOMITING Protocol Pantoprazole Sodium 40 mg 12/22/24 09:00 12/23/24 09:14 Pantoprazole Inj 40 Mg Vial IVP 01/21/25 08:59 40 mg Q12HR IFTIKHAR Administration Thiamine HCl 100 mg 12/22/24 01:45 12/23/24 09:14 Thiamine 100 Mg Tablet PO 12/27/24 01:44 100 mg BID IFTIKHAR Administration Plan 29-year-old male with past medical history of alcohol use disorder who presented to the ED with hematemesis and dark tarry stools. #GI bleed upper, likely versus lower Onset of symptoms was around 3-5 days ago where he first noticed dark stools which later became bloody. He also states he has been having bloody vomiting for 3 days ago last episode of bloody vomiting was yesterday night. Hemoglobin at this time 16.9, no episodes of hematemesis or melena in the ED Rockall score: 0; 0.2% mortality pre-endoscopy Angelita-Blatchford Bleeding Score (GBS): 1; likely to require medical intervention ? Octreotide drip (12/22/2024?) ? Pantoprazole 40 mg IV twice daily ? IV fluids at 75 cc/h ? N.p.o., pending UGI endoscopy ? GI consulted, appreciate recs #Alcohol use disorder ? Thiamine ? Folic acid ? [facility] protocol - Librium 10 mg twice daily, will downtitrate based on clinical symptoms #Elevated T. bili, resolving Likely due to dehydration in the setting of vomiting and alcohol use Gallbladder ultrasound was done showed no cholelithiasis or cholecystitis ? Monitor at this time Health Maintenance: Disposition: Telemetry, pending GI workup, [facility] protocol Fluids: NS Feeding: N.p.o. Thrombo prophylaxis: SCDs Gastric Ulcer prophylaxis: Pantoprazole CODE STATUS: Full code Patient plan of care was discussed with the attending physician, Dr. Suero and senior resident Dr. Magan Banks, PGY1 Attending Provider Attestation/Addendum I have discussed and was present for the essential components of the history, physical examination, diagnosis, and treatment plan with the resident. I agree with the patient's care as documented by the resident and amended herein by me. Elvis Suero DO. Although this document has been carefully reviewed, there may still be some phonetic and other typographical errors. These errors are purely grammatical due to imperfections in the software program and should not be construed in any way to compromise the substance of the patient's medical care during this visit.
--- NOTE | 2024-12-23 21:17 | PC.NURSE ---
pt. back from EGD, pt is AAOX4, VSS, walked with stand-by assist to bed, no complaints at this time only requesting a snack. call light and belongings within reach. will continue POC
[2024-12-24] VITALS: BP 114/73; PULSE 50; PULSE 54; RESP 13; TEMP 36.1; O2SAT 95
--- NOTE | 2024-12-24 03:11 | PC.NURSE ---
pt. HR down to 41, checked on pt. he was asymptomatic, MD Carlin made aware. No new orders at this time.
[2024-12-24 04:00] VITALS: BP 115/68; PULSE 48; PULSE 52; RESP 13; TEMP 36.6; O2SAT 96
[2024-12-24 05:24] LABS: Basophils # (Auto) 0.1 Thou/mm3 (0.0-0.2); Basophils % (Auto) 1 % (0-2.5); Eosinophils # (Auto) 0.3 Thou/mm3 (0.0-0.5); Eosinophils % (Auto) 3 % (0-10); Hematocrit 46.1 % (41.0-53.0); Hemoglobin 15.9 g/dL (13.5-16.0); Immature Granulocytes % (Auto) 0 % (0-0); Immature Granulocytes Auto 0.04 Thou/mm3 (0.00-0.00); Lymphocytes % (Auto) 29 % (10-50); Mean Corpuscular HGB Conc 34.5 g/dl (31.0-37.0); Mean Corpuscular Volume 84 fL (80-100); Monocytes # (Auto) 0.8 Thou/mm3 (0.0-0.8); Monocytes % (Auto) 8 % (0-12); Neutrophils # (Auto) 6.2 Thou/mm3 (1.8-7.7); Neutrophils % (Auto) 59 % (37-80); Nucleated Red Blood Cell % 0 /100 WBC (0); Platelet Count 220 Thou/mm3 (140-440); RDW Standard Deviation 40.6 fL (35.1-43.9); Red Blood Count 5.48 Miln/mm3 (4.50-5.90); White Blood Count 10.5 Thou/mm3 (3.8-10.6)
[2024-12-24 05:31] VITALS: BMI 26.1
[2024-12-24 05:48] LABS: Alanine Aminotransferase 12 U/L (10-49); Albumin, Serum 4.3 gm/dL (3.5-5.0); Albumin/Globulin Ratio 2.2 (1.2-2.2); Alkaline Phosphatase 60 U/L (46-116); Anion Gap 6 (7-16); Aspartate Amino Transferase 13 U/L (0-34); BUN/Creatinine Ratio 11 Ratio (12-20); Bilirubin,Total 1.3 mg/dL (0.3-1.2); Blood Urea Nitrogen 13 mg/dL (9-23); Carbon Dioxide 32.7 mMol/L (20.0-31.0); Chloride 102 mMol/L (98-107); Creatinine (Component) 1.2 mg/dL (0.6-1.3); Estimated Creatinine Clearance 90.8 mL/min (>60); Glucose 106 mg/dL (74-106); Magnesium 2.3 mg/dL (1.6-2.6); Osmolality,Calculated 281 (275-295); Phosphorous 4.4 mg/dL (2.4-5.1); Potassium 4.2 mMol/L (3.4-5.1); Sodium 141 mMol/L (136-145); Total Protein 6.3 gm/dL (5.7-8.2); eGFR > 60 See Note
[2024-12-24 08:00] VITALS: BP 110/77; PULSE 55; PULSE 65; RESP 13; TEMP 36.1; O2SAT 100
[2024-12-24 08:04] VITALS: PULSE 64; RESP 14; RESP 98
[2024-12-24] MEDS: FOLIC ACID 1 MG TABLET PO (08:47)
[2024-12-24] MEDS: THIAMINE 100 MG TABLET PO (08:47)
[2024-12-24] MEDS: PANTOPRAZOLE 40 MG TABLET PO (08:47)
[2024-12-24] MEDS: chlordiazePOXIDE HCl 10 MG CAPSULE PO (08:47)
[2024-12-24 12:00] VITALS: BP 119/72; PULSE 63; PULSE 74; RESP 14; TEMP 36.7; O2SAT 98
--- NOTE | 2024-12-24 12:43 | PD.RESPRO ---
Documentation for date of: 12/24/24 Exam Vital Signs Temp Pulse Resp BP Pulse Ox O2 Del Method O2 Flow Rate 97.0 F 74 14 110/77 100 Room Air 3 12/24/24 08:00 12/24/24 12:00 12/24/24 08:04 12/24/24 08:00 12/24/24 08:00 12/24/24 08:00 12/23/24 20:40 Objective Labs 12/24/24 04:35 12/24/24 04:35 Labs: Laboratory Results - last 24 hr 12/24/24 04:35 WBC 10.5 RBC 5.48 Hgb 15.9 Hct 46.1 MCV 84 MCH 29.0 MCHC 34.5 RDW Std Deviation 40.6 Plt Count 220 Neut % (Auto) 59 Lymph % (Auto) 29 [place] % (Auto) 8 Eos % (Auto) 3 Baso % (Auto) 1 Neut # (Auto) 6.2 Lymph # (Auto) 3.0 [place] # (Auto) 0.8 Eos # (Auto) 0.3 Baso # (Auto) 0.1 Immature Gran # (Auto) 0.04 H Absolute Nucleated RBC 0.00 Immature Gran % 0 Nucleated RBC % 0 Sodium 141 Potassium 4.2 D Chloride 102 Carbon Dioxide 32.7 H Anion Gap 6 L BUN 13 Creatinine 1.2 Estim Creat Clear Calc 90.8 eGFR > 60 BUN/Creatinine Ratio 11 L Glucose 106 Calculated Osmolality 281 Calcium 9.0 Corrected Calcium 9.0 Phosphorus 4.4 Magnesium 2.3 Total Bilirubin 1.3 H AST 13 ALT 12 Alkaline Phosphatase 60 Total Protein 6.3 Albumin 4.3 Globulin 2.0 L Albumin/Globulin Ratio 2.2 Quality Measures Quality Measures none Assessment & Plan Assessment Current Active Medications: Generic Name Dose Route Start Last Admin Trade Name Freq PRN Reason Stop Dose Admin Acetaminophen 650 mg 12/22/24 01:34 Acetaminophen 325 Mg Tablet PO 01/21/25 01:33 Q6H PRN Fever >99.5 Acetaminophen 1,000 mg 12/24/24 11:32 Acetaminophen 500 Mg Tablet PO 01/21/25 01:33 Q6H PRN PAIN SCALE 1-3 (mild Chlordiazepoxide HCl 10 mg 12/23/24 21:00 12/24/24 08:47 Chlordiazepoxide Hcl 10 Mg Capsule PO 12/28/24 20:59 10 mg BID IFTIKHAR Administration Folic Acid 1 mg 12/22/24 01:45 12/24/24 08:47 Folic Acid 1 Mg Tablet PO 12/27/24 01:44 1 mg BID IFTIKHAR Administration Lorazepam 0.5 mg 12/22/24 01:34 12/22/24 08:00 Lorazepam 0.5 Mg Tablet PO 12/27/24 01:33 0.5 mg Q4HR PRN Administration CIWA Score 2-6 Lorazepam 1 mg 12/22/24 01:34 Lorazepam 2 Mg/Ml Vial IV 12/27/24 01:33 Q2HR PRN CIWA SCORE 14-19 Lorazepam 2 mg 12/22/24 01:34 Lorazepam 2 Mg/Ml Vial IV 12/27/24 01:33 Q2HR PRN CIWA SCORE 20-25 Lorazepam 0.5 mg 12/24/24 11:32 Lorazepam 2 Mg/Ml Vial IV 12/27/24 01:33 Q2HR PRN CIWA SCORE 7-13 Ondansetron HCl 4 mg 12/22/24 01:34 12/22/24 08:00 Ondansetron Inj 2 Mg/Ml Inj 2 Ml IVP 01/21/25 01:33 4 mg Q6H PRN Administration NAUSEA OR VOMITING Protocol Pantoprazole Sodium 40 mg 12/24/24 09:00 12/24/24 08:47 Pantoprazole 40 Mg Tablet PO 01/23/25 08:59 40 mg QDAY IFTIKHAR Administration Thiamine HCl 100 mg 12/22/24 01:45 12/24/24 08:47 Thiamine 100 Mg Tablet PO 12/27/24 01:44 100 mg BID IFTIKHAR Administration Attending Provider Attestation/Addendum I have discussed and was present for the essential components of the history, physical examination, diagnosis, and treatment plan with the resident. I agree with the patient's care as documented by the resident and amended herein by me. Elvis Suero DO. Although this document has been carefully reviewed, there may still be some phonetic and other typographical errors. These errors are purely grammatical due to imperfections in the software program and should not be construed in any way to compromise the substance of the patient's medical care during this visit.
--- NOTE | 2024-12-24 13:07 | PC.SS ---
Rounding: Pending Dr. Lay reccs, possible need for Octreotide
--- NOTE | 2024-12-24 14:47 | ESDS_ITS ---
<Statement entered by Aubrey Carrero MD - 12/24/24 15:58> I discussed with and supervised the paid intern physician involved in the care of this patient. Patient assessment and plan was discussed with entire medicine team, including my attending. I agree with the assessment and plan as documented by paid intern doctor. Patient care was discussed with my attending physician Dr. Nimo Carrero, PGY-2 Planned Discharge Date 12/24/24 DS: Providers Provider Date of admission: 12/22/24 01:33 Primary care physician: Shahbaz Phan MD Admitting Provider: Harrison Sandoval MD Attending Provider on Admission: Marco A Suero DO Consults: 12/22/24 01:36 Consult to Gastroenterology Stat Comment: Consulting Provider: Gordo Lay Attending Provider on DC: Momo Banks MD Discharging Provider: Momo Banks MD DS: Diagnosis Problem List Completed Was Problem List Reviewed/Reconciled?: Yes Hospital Course Hospital Course Hospital course: 29-year-old male with past medical history of alcohol use disorder who presented to the ED with hematemesis, dark tarry stools and diagnosed to have Grade I esophageal varices Hospital course: Vitals at the time of admission are stable except for mildly elevated blood pressure 156/99 mmHg. Labs are significant for hemoglobin 16.9, potassium 3.1, bicarb 32.1, total bilirubin 1.4. CT abdomen/pelvis showed mild SBO. Gallbladder ultrasound is negative for cholecystitis or cholelithiasis. Hedis Abstractor, Dr. Lay was consulted and patient underwent EGD on 12/23/2024 which showed esophageal ulcers, grade 1 esophageal varices, gastritis characterized by erythema. Patient appears to be bleeding mildly from esophageal ulcers but no bleeding noted from varices. Treated with CIWA protocol and Librium during the hospital stay. Dr. Lay recommended to start propranolol and to continue Protonix for 90 days. Patient was educated on alcohol abstinence. Patient is discharged to home with the following medications and recommendations - Start your new medication Propranolol 10 mg twice a day - Follow up with [facility] with Dr. Banks - [facility]: , [address] [facility], [place], [place] - If your symptoms worsen, go to your nearest hospital #GI bleed upper, likely versus lower #Alcohol use disorder #Elevated T. bilirubin Patient plan of care was discussed with the attending physician, Dr. Suero and senior resident Dr. Magan Banks, PGY1 Time Spent with Patient Time attestation: Total time spent providing and/or coordinating discharge services: Time spent: Greater than 30 minutes Exam Vital Signs Temp Pulse Resp BP Pulse Ox O2 Del Method O2 Flow Rate 98.0 F 63 14 119/72 98 Room Air 3 12/24/24 12:12/24/24 12:12/24/24 12:12/24/24 12:12/24/24 12:12/24/24 12:12/23/24 20:40 Narrative Exam General: Awake. HEENT: Normocephalic, atraumatic, mucous membranes moist. Heart: Regular rate and rhythm, no murmurs. Lungs: Clear to auscultation with no wheezing or crackles. Abdomen: Soft, nondistended, nontender, positive bowel sounds. ?No guarding or rebound tenderness. Neurologic: Alert and oriented x3, no gross neurological deficit, and patient able to move all 4 extremities. Extremities: No edema. Skin: No rash or ecchymoses. Discharge Plan Plan Patient Disposition: HOME (Self Care) Patient condition on transfer: Stable Care Plan Goals: Start your new medication Propranolol 10 mg twice a day Follow up with [facility] with Dr. Banks [facility]: , [address] [place] [address] If your symptoms worsen, go to your nearest hospital Prescriptions/Referrals Prescriptions/Med Rec: New propranolol 10 mg tablet 10 mg PO BID Qty: 60 0RF Referrals: Shahbaz Phan MD [Primary Care Provider] - Patient/Caregiver Discharge Instructions Other Discharge Activity Instructions:: Start your new medication Propranolol 10 mg twice a day Follow up with [facility] with Dr. Banks [facility]: , [address] [facility], [place], [place] If your symptoms worsen, go to your nearest hospital Education Materials: Bleeding Gastrointestinal, Upper GI Endoscopy, Anatomy of the Digestive System, ED Upper GI Bleeding (Stable) Print Language: Pashto Stand Alone Forms: Mireille Award Info., Patient Portal Info Letter Discharge Order Discharge Orders: Discharge (Routine); Ordered 12/24/24 Ordered By: Aubrey Carrero Quality Discharge Quality Measures VTE prophylaxis Attestestation MD Attestation I have discussed and was present for the essential components of the discharge history, physical examination, diagnosis, and discharge treatment plan with the resident. I agree with the patient's discharge care as documented by the resident and amended herein by me. Elvis Suero DO. The patient understood all discharge instructions, all questions were answered satisfactorily. The patient was instructed to return to the [facility] t is symptoms worsened or persisted. Patient discharged with propranolol 10 mg twice daily in setting of esophageal varices. The patient was stable, afebrile, tolerating p.o. intake and ambulatory at time of discharge home. See resident note above for additional details. Although this document has been carefully reviewed, there may still be some phonetic and other typographical errors. These errors are purely grammatical due to imperfections in the software program and should not be construed in any way to compromise the substance of the patient's medical care during this visit.
[2024-12-24 15:25] VITALS: BP 122/68; PULSE 83; RESP 15; TEMP 36.7; O2SAT 96
--- NOTE | 2024-12-24 23:10 | ESPR_ITS ---
Documentation for date of: 12/24/24 Subjective Subjective Interval history: Late entry for the note Case discussed with internal medicine lei louie to discharge patient home to be followed by the PCPm Exam Vital Signs Temp Pulse Resp BP Pulse Ox O2 Del Method O2 Flow Rate 98.1 F 83 15 122/68 96 Room Air 3 12/24/24 15:25 12/24/24 15:25 12/24/24 15:25 12/24/24 15:25 12/24/24 15:25 12/24/24 15:25 12/23/24 20:40 Objective Labs 12/24/24 04:35 12/24/24 04:35 Labs: Laboratory Results - last 24 hr 12/24/24 04:35 WBC 10.5 RBC 5.48 Hgb 15.9 Hct 46.1 MCV 84 MCH 29.0 MCHC 34.5 RDW Std Deviation 40.6 Plt Count 220 Neut % (Auto) 59 Lymph % (Auto) 29 [place] % (Auto) 8 Eos % (Auto) 3 Baso % (Auto) 1 Neut # (Auto) 6.2 Lymph # (Auto) 3.0 [place] # (Auto) 0.8 Eos # (Auto) 0.3 Baso # (Auto) 0.1 Immature Gran # (Auto) 0.04 H Absolute Nucleated RBC 0.00 Immature Gran % 0 Nucleated RBC % 0 Sodium 141 Potassium 4.2 D Chloride 102 Carbon Dioxide 32.7 H Anion Gap 6 L BUN 13 Creatinine 1.2 Estim Creat Clear Calc 90.8 eGFR > 60 BUN/Creatinine Ratio 11 L Glucose 106 Calculated Osmolality 281 Calcium 9.0 Corrected Calcium 9.0 Phosphorus 4.4 Magnesium 2.3 Total Bilirubin 1.3 H AST 13 ALT 12 Alkaline Phosphatase 60 Total Protein 6.3 Albumin 4.3 Globulin 2.0 L Albumin/Globulin Ratio 2.2 Impressions Impression: Acute upper GI bleed from gastritis as well as esophageal ulcers send patient home on PPI to be followed by the PCP. Assessment & Plan A&P Narrative # Hematemesis # Melena Recommendations Clear liquid diet followed by diet Consent obtained for fiberoptic esophagogastroduodenoscopy with possible biopsy possible therapeutic intervention under intravenous moderate sedation Advised complete abstinence from alcohol drugs and THC IV Protonix Serial CBC Will follow the patient Thank you very much for the opportunity to participate in the care of this patient Time Spent With Patient Time: Total time spent is greater than 50% in coordination of care (as documented) at patient's floor/unit and/or counseling patient:
== END 2024-12-24 15:36 | disposition home or self-care (01) | DRG 242 ==
LOC: SERX 12-22 01:07 → SERHOLD 12-22 01:50 → S2NX 12-22 04:07
PROVIDERS: Physician Assistant; Specialist; Student in an Organized Health Care Education/Training Program; Admitting Provider Student in an Organized Health Care Education/Training Program; Emergency Provider Emergency Medicine; PCP Family Medicine; Visit Provider Student in an Organized Health Care Education/Training Program
PROC: 0DJ08ZZ Inspection of Upper Intestinal Tract, Via Natural or Artificial Opening Endoscopic (ICD-10-PCS; CPT 43239; principal; 2024-12-23 15:00)
DX: K22.11 Ulcer of esophagus with bleeding (principal); D72.829 Elevated white blood cell count, unspecified; I85.00 Esophageal varices without bleeding; F10.10 Alcohol abuse, uncomplicated; E86.0 Dehydration; E87.6 Hypokalemia; F12.90 Cannabis use, unspecified, uncomplicated; K29.71 Gastritis, unspecified, with bleeding; K56.609 Unspecified intestinal obstruction, unspecified as to partial versus complete obstruction; Z79.899 Other long term (current) drug therapy
CPT/HCPCS: 36415; 74176; 80053; 81001; 83690; 83735; 84100; 85025; 94762; 96374; 96375; 99285; J1200; J2250; J2354; J2405; J2470; J2765; J3010; J7050; J7120; Q0162; A9270